=== PATIENT | male | born 1950 | race Caucasian/White ===

== ENCOUNTER 2022-04-16 10:21 | Outpatient (CLI) | payer OTHER ==
[~2022-04-16 10:21] MED LIST: BARIUM SULFATE 1,900 ML ORAL.SUSP ONE
[2022-04-16] MEDS ORDERED: BARIUM SULFATE 700 MG TABLET PO ONE (14:00)
[2022-04-16] MEDS ORDERED: BARIUM SULFATE 340 ML SUSP.RECON***PROCEDURE AREA ONLY**DONT ENTER PO ONE (14:00)
[2022-04-16] MEDS ORDERED: SIMETHICONE/SOD BICARB/CIT AC PACKET PO ONE (14:00)
== END 2022-04-16 23:59 | disposition home or self-care (01) ==
LOC: RAD 10:21
PROVIDERS: ATTEND Internal Medicine
DX: R05.3 Chronic cough (principal)
CPT/HCPCS: 74220